=== PATIENT | male | born 1970 | race American Indian/Alaskan Native ===

== ENCOUNTER 2022-10-04 21:43 | Emergency (ER) | payer SELFPAY ==
[~2022-10-04] VITALS: Ht 182.9 cm; Wt 131.4 kg
[~2022-10-04 21:43] MED LIST: CEPHALEXIN500 M1 PO; CYMBALTA 60MG60 MG PO; DOXYCYCLINE 10100 MG PO; FLEXERIL 1010 MG/TAB PO; GLUCOPHAGE1000 MG PO; LIPITOR 10MG10 MG PO; MAGIC MOUTH PO; MORPHINE PO; MS CONTIN 115 MG/TAB PO; NORCO 325 MG-101 TAB PO; NORCO 325 MG-51 TAB PO; NORCO 325 MG-7.1 TAB PO; PERCOCET 325 MG1 TA2 PO; PHENERGAN 25 TA25 MG PO; PHENERGAN25 MG RC; PRILOTC PO; PRINIVIL20 MG PO; ROXICODONE 55 MG/TAB PO; SOMA250 MG PO; TETRACYCLI500 MG/CAP PO; ULTRAM 50MG TAB50 MG PO; XANAFLEX; ZANAFLEX4 M1 PO; ZANTAC PO; ZOFRAN 4MG T4 MG/TAB PO; ZOFRAN8 MG PO
[2022-10-04 21:56] VITALS: TEMP 98.6
[2022-10-04] MEDS ORDERED: ELIQUIS 5MG PO (22:30)
[2022-10-04] MEDS ORDERED: NORCO 325 MG-51 TAB PO (22:30)
[2022-10-04 22:50] LABS: HEMATOCRIT 46.8 % (42.0-52.0); HEMOGLOBIN 16.5 g/dl (13.5-18.0); MEAN CELL VOLUME 89 fl (80.0-100.0); MEAN CORPUSCULAR HEMOGLOBIN 31 pg (27-31); MEAN CORPUSCULAR HGB CONC 35 g/dl (33.0-37.0); MEAN PLATELET VOLUME 9.7 fl (7.4-10.4); PLATELET COUNT 230 K/mm3 (130-400); RED BLOOD COUNT 5.27 M/mm3 (4.20-5.60); REDCELL DISTRIBUTION WIDTH-CV 13.1 % (11.5-14.5)
[2022-10-04 23:05] VITALS: BP 132/78; PULSE 78
[2022-10-04 23:07] LABS: CALCIUM 10.1 mg/dL (8.4-10.2); CREATININE, serum 0.85 mg/dL (0.72-1.25); POTASSIUM 3.9 mmol/L (3.5-4.5)
== END 2022-10-04 23:07 | disposition home or self-care (01) ==
LOC: COL.ER 21:43
PROVIDERS: Emergency Medicine
DX: S30.1XXA Contusion of abdominal wall, initial encounter (principal); I82.401 Acute embolism and thrombosis of unspecified deep veins of right lower extremity; R03.0 Elevated blood-pressure reading, without diagnosis of hypertension; Z79.02 Long term (current) use of antithrombotics/antiplatelets; X58.XXXA Exposure to other specified factors, initial encounter

== ENCOUNTER 2023-08-07 14:41 | Emergency (ER) | payer SELFPAY ==
[~2023-08-07] VITALS: Ht 182.9 cm; Wt 129.5 kg
[~2023-08-07 14:41] MED LIST changes: +ELIQUIS 5MG PO; +TYLENOL #21 TAB PO
[2023-08-07] MEDS ORDERED: Ibuprofen 600 MG TAB PO ONE (15:15)
[2023-08-07] MEDS ORDERED: Sulfamethoxazole/Trimethoprim 800-160 MG TAB PO ONE (15:15)
[2023-08-07] MEDS ORDERED: LEVAQUIN 750MG750 M1 PO (15:55)
[2023-08-07] MEDS ORDERED: BACTRIM DS 8001 TAB PO (15:55)
[2023-08-07] MEDS ORDERED: ULTRAM 50MG TAB50 MG PO (15:58)
[2023-08-07] MEDS ORDERED: oxyCODONE/Acetaminophen 10-325 MG TAB PO ONE (16:00)
[2023-08-07 16:15] VITALS: BP 168/97; PULSE 75; TEMP 98.1
== END 2023-08-07 16:15 | disposition home or self-care (01) ==
LOC: COL.ER 14:41
DX: S90.852A Superficial foreign body, left foot, initial encounter (principal); L03.116 Cellulitis of left lower limb; E11.9 Type 2 diabetes mellitus without complications; F17.210 Nicotine dependence, cigarettes, uncomplicated; Z88.0 Allergy status to penicillin; W45.8XXA Other foreign body or object entering through skin, initial encounter

== ENCOUNTER 2023-11-20 14:35 | Emergency (ER) | payer BC ==
[~2023-11-20] VITALS: Ht 182.9 cm; Wt 125.0 kg
[~2023-11-20 14:35] MED LIST changes: +BACTRIM DS 8001 TAB PO; +LEVAQUIN 750MG750 M1 PO
[2023-11-20] MEDS ORDERED: Cephalexin 500 MG CAP PO ONE (18:00)
[2023-11-20] MEDS ORDERED: Ibuprofen 400 MG TAB PO ONE (18:00)
[2023-11-20 18:43] VITALS: BP 162/88; PULSE 66; TEMP 98
[2023-11-27] MEDS ORDERED: DOXYCYCLINE 10100 MG PO (16:47)
[2023-12-04] MEDS ORDERED: DOXYCYCLINE 10100 MG PO (11:42)
[2023-12-04] MEDS ORDERED: PERCOCET 325 MG1 TA2 PO (11:44)
== END 2023-11-20 18:43 | disposition home or self-care (01) ==
LOC: COL.ER 14:35
DX: T24.201A Burn of second degree of unspecified site of right lower limb, except ankle and foot, initial encounter (principal); S90.852A Superficial foreign body, left foot, initial encounter; F17.200 Nicotine dependence, unspecified, uncomplicated; X17.XXXA Contact with hot engines, machinery and tools, initial encounter; W45.8XXA Other foreign body or object entering through skin, initial encounter